=== PATIENT | male | born 1945 | race Caucasian/White ===

== ENCOUNTER → 2017-01-03 | Outpatient (CLI) | payer MEDICARE, OTHER | LOC: LAB.O 13:36 | PROVIDERS: ATTEND Urology | DX: R97.20 Elevated prostate specific antigen [PSA] (principal) ==

== ENCOUNTER → 2018-01-30 | Outpatient (CLI) | payer MEDICARE, OTHER | LOC: LAB.O 14:31 | PROVIDERS: ATTEND Urology | DX: R97.20 Elevated prostate specific antigen [PSA] (principal) ==

== ENCOUNTER 2018-12-22 10:14 | Emergency (ER) | payer MEDICARE, OTHER ==
[2018-12-22 10:32] VITALS: BP 140/70; O2SAT 95
--- NOTE | 2018-12-22 10:34 | ED.PDOC ---
History of Present Illness - General Chief Complaint: General Stated Complaint: Sore throat, cough Time Seen by Provider: 12/22/18 10:33 Source: patient - History of Present Illness Initial Comments: Norman Mahoney 73 y/o male came to ER wtih achy throat since 16 Dec 2018 with cough and congestion.No nausea /V;felt feverish.Denies medical problems.Stated not getting better. Timing/Duration: other - 6 days Severity: moderate Improving Factors: nothing Worsening Factors: nothing Associated Symptoms: other - see hpi Allergies/Adverse Reactions: Allergies NO KNOWN ALLERGY Allergy (Verified 10/11/12 07:06) Home Medications: Ambulatory Orders Cefuroxime Axetil [Ceftin] 500 mg PO Q12H 10 Days #20 tablet 12/22/18 Dutasteride 0.5 mg PO DAILY 12/22/18 predniSONE 20 mg PO DAILY 7 Days #7 tab 12/22/18 Review of Systems - Review of Systems Constitutional: States: see HPI EENTM: States: throat pain Respiratory: States: no symptoms reported Cardiology: States: no symptoms reported Gastrointestinal/Abdominal: States: no symptoms reported Genitourinary: States: no symptoms reported Musculoskeletal: States: no symptoms reported Skin: States: no symptoms reported All other Systems: Reviewed and Negative, No Change from Baseline Past Medical History (General) - Patient Medical History Hx Stroke: No Hx Asthma: Yes Hx Cardiac Disorders: No Hx Congestive Heart Failure: No Hx Diabetes: No Hx MRSA: No Surgical History: appendectomy, other - hernia repair - Vaccination History Hx Tetanus, Diphtheria Vaccination: No Hx Influenza Vaccination: No Hx Pneumococcal Vaccination: No - Social History Hx Tobacco Use: No Hx Alcohol Use: No Hx Substance Use: No Hx Physical Abuse: No Hx Emotional Abuse: No Family Medical History - Family History Father Family History: No Known Living Status: Hx Cardiac Disease: Yes - mom Hx Family;Other: dementia Physical Exam - Physical Exam General Appearance: Alert, Comfortable Eye Exam: bilateral normal Ears, Nose, Throat: hearing grossly normal, normal ENT inspection, pharyngeal erythema Neck: supple, normal inspection Respiratory: lungs clear, normal breath sounds Cardiovascular/Chest: normal peripheral pulses, regular rate, rhythm, no murmur Peripheral Pulses: radial,right: 2+, radial,left: 2+ Gastrointestinal/Abdominal: non tender, soft, no organomegaly Back Exam: no CVA tenderness, no vertebral tenderness Extremity: no pedal edema, no calf tenderness Neurologic: alert, oriented x 3 Skin Exam: normal color, warm/dry Lymphatic: no adenopathy Progress - Progress Progress: 12/22/18 12:08 Vital Signs - 8 hr 12/22/18 10:20 Temperature 99.8 F H Pulse Rate [ 82 Left Radial] Respiratory 28 H Rate Blood Pressure 140/70 [Left Arm] O2 Sat by Pulse 95 Oximetry - Results/Orders Results/Orders: 12/22/18 10:26 STREP A SCREEN CULTURE Stat 12/22/18 10:34 IV Care:Saline Lock per Protoc QSHIFT Laboratory Results - last 24 hr 12/22/18 12/22/18 10:26 10:34 WBC 13.1 H RBC 5.42 Hgb 15.7 Hct 47.1 MCV 86.8 MCH 28.9 MCHC 33.3 RDW 14.5 Plt Count 223 MPV 8.5 Absolute Neuts (auto) 10.20 H Absolute Lymphs (auto) 1.30 Absolute Monos (auto) 1.30 H Absolute Eos (auto) 0.20 Absolute Basos (auto) 0.10 Neutrophils % 77.4 Lymphocytes % 10.2 L Monocytes % 10.2 H Eosinophils % 1.3 Basophils % 0.9 PT 10.5 INR 1.05 PTT (SP) 32.9 H Sodium 134 L Potassium 3.9 Chloride 102 Carbon Dioxide 24 Anion Gap 11.9 L BUN 14 Creatinine 0.96 BUN/Creatinine Ratio 14.6 Random Glucose 137 H Serum Osmolality 270.9 L Calcium 8.7 Magnesium 2.0 Total Bilirubin 0.5 Direct Bilirubin < 0.1 Indirect Bilirubin 0.4 AST 25 ALT 22 Alkaline Phosphatase 76 Creatine Kinase 79 CK-MB (CK-2) 1.2 CK-MB (CK-2) % Not Reportable Troponin I < 0.02 Serum Total Protein 7.3 Albumin 4.0 Group A Strep Rapid Negative Flu Swab negative - EKG/XRAY/CT XRAY: chest - lower lobe atelectasis Departure - Departure Clinical Impression: Sore throat and laryngitis Pharyngitis Qualifiers: Pharyngitis/tonsillitis etiology: unspecified etiology Qualified Code(s): J02.9 - Acute pharyngitis, unspecified Time of Disposition: 12:03 Disposition: Discharge to Home or Self Care Departure Forms: ED Discharge - Pt. Copy, Patient Portal Self Enrollment Instructions: Sore Throat, Adult (DC), Sodium Chloride, How to Do a Nasal Rinse Referrals: Ramses Lopez MD [Primary Care Provider] - 1-2 Weeks Prescriptions: Cefuroxime Axetil [Ceftin] 500 mg PO Q12H 10 Days #20 tablet predniSONE 20 mg PO DAILY 7 Days #7 tab Home Medications: Ambulatory Orders Cefuroxime Axetil [Ceftin] 500 mg PO Q12H 10 Days #20 tablet 12/22/18 Dutasteride 0.5 mg PO DAILY 12/22/18 predniSONE 20 mg PO DAILY 7 Days #7 tab 12/22/18 Additional Instructions: Follow up with primary Md for recheck in AM;Return to ER if symptoms worsens
--- NOTE | 2018-12-22 10:50 | RAD ---
CHEST 12/22/2018 CLINICAL HISTORY: Cough COMPARISON: None TECHNIQUE: [AP] Chest. FINDINGS: Heart is normal in size. Normal cardiomediastinal contours. Normal pulmonary vascularity. No airspace consolidation. Bilateral lower lobe atelectasis. Pleural spaces are clear. Unremarkable soft tissues and bones. IMPRESSION: 1. Bilateral lower lobe discoid atelectasis. Electronically signed by: Karlie Johnson DO 12/22/2018 10:46 AM CDT
[2018-12-22 13:35] VITALS: TEMP 98
== END 2018-12-22 11:55 | disposition home or self-care (01) ==
LOC: ER 10:14
DX: J02.9 Acute pharyngitis, unspecified (principal); J04.0 Acute laryngitis; J45.909 Unspecified asthma, uncomplicated

== ENCOUNTER → 2019-03-12 | Outpatient (CLI) | payer MEDICARE, OTHER | LOC: LAB.O 14:29 | PROVIDERS: ATTEND Urology | DX: R97.20 Elevated prostate specific antigen [PSA] (principal) ==

== ENCOUNTER → 2020-02-26 | Outpatient (CLI) | payer MEDICARE, OTHER | LOC: GMAE 11:32 | PROVIDERS: ATTEND Family Medicine | DX: Z12.5 Encounter for screening for malignant neoplasm of prostate (principal); Z79.899 Other long term (current) drug therapy | CPT/HCPCS: 84443; G0103 ==